=== PATIENT | male | born 2005 | race African-American/Black ===

== ENCOUNTER 2025-08-25 18:41 | Emergency (ER) | payer OTHER ==
[~2025-08-25] VITALS: Ht 177.8 cm; Wt 61.4 kg
[2025-08-25 18:48] VITALS: TEMP 98.1
[2025-08-25 19:00] LABS: COVID AG,FIA SOURCE NASAL SWAB
[2025-08-25 19:27] LABS: RAPID GROUP A STREP PRELIM. NEGATIVE (NEGATIVE)
[2025-08-25 19:35] LABS: INFLUENZA TYPE A NEGATIVE FOR TYPE A (NEGATIVE); INFLUENZA TYPE B NEGATIVE FOR TYPE B (NEGATIVE); SARS-COV2 (COVID) ANTIGEN,FIA Negative (Negative)
[2025-08-25 20:20] VITALS: BP 115/70; PULSE 88; RESP 16; O2SAT 97
== END 2025-08-25 20:29 | disposition home or self-care (01) ==
LOC: EMS 18:41
DX: J06.9 Acute upper respiratory infection, unspecified (principal); B97.89 Other viral agents as the cause of diseases classified elsewhere; Z20.822 Contact with and (suspected) exposure to COVID-19
CPT/HCPCS: 87081; 87430; 87804; 99283

== ENCOUNTER 2025-09-15 20:45 | Emergency (ER) | payer OTHER ==
[~2025-09-15] VITALS: Ht 175.3 cm; Wt 65.9 kg
[2025-09-15 23:13] VITALS: BP 132/77; PULSE 75; RESP 17; TEMP 98.3; O2SAT 96
== END 2025-09-16 01:05 | disposition home or self-care (01) ==
LOC: EMS 20:45
DX: F41.9 Anxiety disorder, unspecified (principal)
CPT/HCPCS: 99283